=== PATIENT | male | born 1980 | race Caucasian/White ===

== ENCOUNTER 2019-12-15 04:39 | Emergency (ER) | payer BC, OTHER ==
[2019-12-15 04:43] VITALS: BP 163/89
== END 2019-12-15 05:24 | disposition left against medical advice (07) ==
LOC: ED 04:39
DX: Z53.21 Procedure and treatment not carried out due to patient leaving prior to being seen by health care provider (principal); R68.89 Other general symptoms and signs
CPT/HCPCS: 99281